=== PATIENT | female | born 1995 | race Caucasian/White ===

== ENCOUNTER 2024-09-11 09:19 | Outpatient (AMB) | payer BC, SELFPAY ==
--- NOTE | 2024-09-11 09:25 | MHC.PC.OV ---
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 // Requesting a PE-OK PER PAMELA Intake Note: patien here for new patient visit [employer] Helper Required: No Is last menstrual period known: Yes Last menstrual period: 08/25/24 Post menopausal: No Patient : No Allergies Penicillins Allergy (Mild, Verified 09/11/24 09:39) rash Medication List - Last Reconciled 09/11/24 by Pamela Mohamud PA-C no.167-folic acid-dha 400 mcg- 25 mg (One-A-Day ) tabs PO Tobacco use date assessed: 09/11/24 Dental Screening Dental Screen Date: 09/11/24 Did you have a dental visit in the last 12 months?: Yes Did you have a dental problem in the last 6 months where you did not have access to dental care?: No Was dental information given to patient?: Patient has dentist 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 She has a hx of svt, unexplained infertility, and generalized anxiety. She was previously following with [facility]. Her last physical was about 2 years ago. She has no acute concerns today. CV: Hx of SVT as a child around the age of 2 and had an abalation at that time at [facility]. She states that she really has not had issues with this since that time. Sometimes she can feel her heart rate speed up but states it is triggered by stress and quickly resolves. psych: she has a hx of anxiety and was on prozac for years and lorazepam prn. she did trial zoloft which she did not tolerate (made depression worse). No SI/HI. She has been off of meds for 5 years. She overall feels very well-controlled. Trying to get was stressful as they did struggle with fertility issues however she recently conceived naturally. 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 She found out this week that she is currently . She is taking a . 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 Denies any other family history of malignancies or heart disease. 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 1. Little interest or pleasure in doing things: not at all 2. Feeling down, depressed, or hopeless: not at all 3. Trouble falling or staying asleep, or sleeping too much: not at all 4. Feeling tired or having little energy: several days 5. Poor appetite or overeating: not at all 6. Feeling bad about yourself - or that you are a failure or have let yourself or your family down: not at all 7. Trouble concentrating on things, such as reading the newspaper or watching television: not at all 8. Moving or speaking so slowly that other people could have noticed. Or the opposite - being so fidgety or restless that you have been moving around a lot more than usual: not at all 9. Thoughts that you would be better off or of hurting yourself in some way: not at all Total score: 1 Depression Screening Interpretation: Negative Depression Screening Done: Yes 86004 - PHQ-9 Billing: Yes Source: Developed by Drs. Leon Felix, Payal Rubio, Andres Griffin and colleagues, with an educational ezequiel from [employer]. Thrive Questionnaire Date Thrive assessed: 09/10/24 I am a: Patient What is your living situation today?: I have a steady place to live Within the past 12 months, did the food you bought not last and you didn't have the money to get more?: Never true Within the past 12 months, did you worry whether your food would run out before you got money to buy more?: Never true Do you have trouble paying for medicines?: No Do you have trouble getting transportation to medical appointments?: No Do you have trouble paying your heating and electricity bill?: No Do you have trouble taking care of your child, family member or friend?: No Do you have trouble with day-to-day activities such as bathing, preparing meals, shopping, managing finances, etc.?: No Are you currently unemployed and looking for a job?: No Are you interested in more education?: No Please select the resources that you would like help with: None Currently or been in a relationship where the following occur: No concerns reported THRIVE Score: 0 AUDIT C Alcohol Use Questionnaire (AUDIT-C) 1. How often do you have a drink containing alcohol?: 2-4 times a month 2. How many drinks containing alcohol do you have on a typical day when you are drinking?: 1 or 2 3. How often do you have six or more drinks on one occasion?: Less than monthly Total Score: 3 Score Reviewed/Action Taken: Yes A[place]RI[place]-7 AMB Questionnaire ALEX[place]RIA-7 Date ALEX[place]RIA - 7 assessed: 09/11/24 Feeling nervous, anxious, or on edge: 1 = Several days Not being able to stop or control worryin = Several days Worrying too much about different things: 1 = Several days Trouble relaxin = Not at all Being so restless that it is hard to sit still: 0 = Not at all Becoming easily annoyed or irritable: 0 = Not at all Feeling afraid as if something awful might happen: 0 = Not at all Total A[place]-7 score (0-4 normal; 5-9 mild; 10-14 moderate; 15-21 severe): 3 Source: Developed by Drs. Leon Felix, Payal Rubio, Andres Griffin and colleagues, with an educational ezequiel from [employer]. ALEX[place]RIA-7 Assessment Billing A[place]RIA-7 Assessment Tool: A[place]RIA-7 Assessment 45558 Physical exam (Primary Care) Vital Signs: Last Vital Signs Pulse 72 09/11/24 09:26 Resp 12 09/11/24 09:26 BP 102/74 09/11/24 09:26 Pulse Ox 100 09/11/24 09:26 Oxygen Delivery Method Room Air 09/11/24 09:26 BMI result Body Mass Index 24.2 Depression Screening Interpretation: Negative Thrive Assessment: Date of Thrive Assessment Date Thrive assessed 09/10/24 09/10/24 11:14 Currently or been in a relationship where the following occur: No concerns reported Const Orientation/consciousness: patient oriented x3 HENMT Ears: hearing grossly normal bilaterally and TM's normal bilaterally General nose exam: No nasal polyps present Face and sinus: Yes sinuses nontender Mouth: Normal oral and palatal mucosa present Eyes Pupils: Equal, round and reactive pupils present EOM: EOMs intact bilaterally Neck Neck: Yes full ROM and Yes no lymphadenopathy Thyroid: Thyroid normal Chest Chest palpation & inspection: normal inspection of the chest Resp Auscultation: clear to auscultation bilaterally Cardio Rate: regular rate Rhythm: regular rhythm Heart sounds: S1 normal heart sound present and S2 normal heart sound present Peripheral pulses: Peripheral pulses 2+ throughout GI Other: Soft, nontender Auscultation: normal bowel sounds Rectal Exam - Female: deferred General: Yes no CVA tenderness Back/Spine/Pelvis Other: Nontender Back: no CVA tenderness Skin General skin exam: no rashes or lesions noted Neuro General: patient oriented x3, gait normal, CN's II-XI intact bilaterally and deep tendon reflexes 2+ bilaterally Cranial nerves: Yes Equal, round and reactive pupils present Motor exam (neuro): 5/5 motor strength present throughout Sensory Exam: double simultaneous stimulation for sensation normal Coordination: [id number] test normal and Romberg test negative Extrem General: Yes normal to inspection and Yes full ROM Psych Affect: normal affect Attitude: cooperative Thought process: Normal thought process present Thought content: Normal thought content present Insight: Good insight present (Psych) Judgement: Good judgement present (Psych) Coding Level of Care Code New Pt Prev Care 18-39yr(34027 Diagnoses Encounter for routine history and physical examination Z00.00 Generalized anxiety disorder F41.1 Additional Codes PHQ-9 - 20166 - PHQ-9 Billing: Yes ([id number]) A[place]RI[place]-7 Assessment Billing - [place]RI[place]-7 Assessment Tool: [place]RIA-7 Assessment 50803 ([id number]) Assessment & Plan Assessment & Plan (1) Encounter for routine history and physical examination: Code(s): Z00.00 - Encounter for general adult medical examination without abnormal findings Plan: Health maintenance reviewed. Denied any significant family history. Labs ordered today. We will follow up pending test results. Advised to follow up as needed and annually. She was also encouraged to contact me if she does develop any feelings of or any point in her if her mental health changes. (2) Generalized anxiety disorder: Code(s): F41.1 - Generalized anxiety disorder Category: Medical Plan: As above. Orders: Orders Complete Blood Count Auto Diff Today Z00.00 - Encounter for general adult medical examination without abnormal findings TSH reflex Free T4 Today Z00.00 - Encounter for general adult medical examination without abnormal findings [facility] [place]. Panel Fast Today Z00.00 - Encounter for general adult medical examination without abnormal findings Lipid Panel Today Z00.00 - Encounter for general adult medical examination without abnormal findings
[2024-09-11 09:26] VITALS: BP 102/74; PULSE 72; RESP 12; O2SAT 100; BMI 24.2
== END 2024-09-11 09:48 | disposition home or self-care (01) ==
PROVIDERS: Visit Provider Physician Assistant
DX: Z00.00 Encounter for general adult medical examination without abnormal findings (principal); F41.1 Generalized anxiety disorder

== ENCOUNTER → 2024-09-11 09:19 | Outpatient (BNVA) | payer BC, SELFPAY | PROVIDERS: Visit Provider Physician Assistant | DX: Z00.00 Encounter for general adult medical examination without abnormal findings (principal); F41.1 Generalized anxiety disorder | CPT/HCPCS: 96127 ==